=== PATIENT | female | born 1970 | race Caucasian/White ===

== ENCOUNTER 2019-10-27 13:04 | Emergency (ER) | payer OTHER ==
[~2019-10-27] VITALS: Ht 154.9 cm; Wt 59.0 kg
[2019-10-27] MEDS ORDERED: VITAMIN D3-ALO1 EACH PO (13:20)
[2019-10-27] MEDS ORDERED: CENTANY30 GM TOP (13:26)
[2019-10-27] MEDS ORDERED: KEFLEX500 M1 PO (13:26)
[2019-10-27 14:00] VITALS: BP 114/72
== END 2019-10-27 14:00 | disposition home or self-care (01) ==
LOC: M.ERS 13:04
DX: S51.811A Laceration without foreign body of right forearm, initial encounter (principal); S61.411A Laceration without foreign body of right hand, initial encounter; F17.210 Nicotine dependence, cigarettes, uncomplicated; Z90.49 Acquired absence of other specified parts of digestive tract; W22.8XXA Striking against or struck by other objects, initial encounter; Y93.89 Activity, other specified; Y92.098 Other place in other non-institutional residence as the place of occurrence of the external cause; Y99.8 Other external cause status